=== PATIENT | male | born 1980 | race Caucasian/White ===

== ENCOUNTER 2020-12-20 15:09 | Observation (INO) | payer OTHER ==
[~2020-12-20] VITALS: Ht 175.3 cm; Wt 95.3 kg
[~2020-12-20 15:09] MED LIST: NARCAN 2 MG/21 MG/ML
[2020-12-20 15:36] LABS: RED BLOOD COUNT 5.29 M/UL (4.20-5.50); WHITE BLOOD COUNT 3.8 K/UL (4.5-11.0)
[2020-12-20 16:36] LABS: BUN/CREATININE RATIO 12 (0-10)
[2020-12-21 08:00] LABS: HEMOGLOBIN 15.5 gm/dl (14.0-17.5); RED BLOOD COUNT 5.42 M/UL (4.20-5.50)
[2020-12-21 08:02] LABS: WHITE BLOOD COUNT 5.8 K/UL (4.5-11.0)
[2020-12-21 09:03] LABS: BUN/CREATININE RATIO 10 (0-10)
--- NOTE | 2020-12-21 10:36 | NUR ---
patient covid positive with no s/sx noted. no complaints noted. no dizzines reported
--- NOTE | 2020-12-21 18:51 | NUR ---
unable to provide discharge teachings to patient. patient left the room, able to contact over the phone and provided education as written by dr. de souza. patient stated will have someone come back to to cigar packer and picker the folder and mask.
--- NOTE | 2020-12-22 17:09 | NUR ---
nobody picker/puller discharge teachings/folder of patient. nobody answer phone. reported this to dr. de souza and she informed nothing could be done on this situation because patient left ama. informed her that i was able to give education over the phone and patient verb understanding. she sttated to notify counter caser r/t patient covid positive. spoken with ms singh counter caser and she informed me that patient is ama nothing can be done, but to let gladdys infection control anyway.
--- NOTE | 2020-12-22 17:19 | NUR ---
spoken with bandar and informed her of the situation and will call public health.
== END 2020-12-21 18:30 | disposition home or self-care (01) ==
LOC: ER1 15:09 → CDU 17:16 → M/S 17:16
PROVIDERS: Physician Assistant; ADMIT Internal Medicine Infectious Disease
DX: F19.10 Other psychoactive substance abuse, uncomplicated (principal); F15.10 Other stimulant abuse, uncomplicated; F12.10 Cannabis abuse, uncomplicated; R55 Syncope and collapse; U07.1 COVID-19; R94.31 Abnormal electrocardiogram [ECG] [EKG]; F10.10 Alcohol abuse, uncomplicated; B19.20 Unspecified viral hepatitis C without hepatic coma; Z88.0 Allergy status to penicillin
CPT/HCPCS: 36415; 71045; 80053; 82550; 82553; 83735; 83874; 84439; 84443; 84484; 85025; 85652; 86140; 87040; 99285; G0378; J2185; J3370; J7030; J7070; U0002